=== PATIENT | female | born 1970 | race Hispanic/Latino ===

== ENCOUNTER 2025-04-16 21:41 | Emergency (ER) | payer BC ==
[~2025-04-16] VITALS: Ht 165.1 cm; Wt 58.1 kg
--- NOTE | 2025-04-16 22:16 | ERN ---
ED Note History of Present Illness Stated Complaint: C/O POSSIBLE SPIDER BITE TO RT ANKLE Chief Complaint: Animal Bite Time Seen by MD: 21:43 Time Seen by Midlevel: 21:43 Dictation: The patient is a 55-year-old female with no past medical history who presents to the emergency department with complaints of possible insect bite to her anterior right ankle onset prior to arrival. Patient reports she was working outside in her garden when she imbalance that is something bit her but is unaware of what bit her. Reports he is up-to-date with her tetanus . Allergies: Coded Allergies: No Known Allergies (Unverified Allergy, Unknown, 04/16/25) Past Medical History Past Medical History: No Pertinent History Surgical History: RN Note Reviewed/Agreed w/PFSH: Yes Review of System Dictation Constitutional: Negative for fever,chills, and weight loss Eyes: Negative for injury, pain,redness, and discharge ENT: Negative for injury,pain or swelling Cardiovascular: Negative for chest pain, palpitations, and edema Respiratory: Negative for shortness of breath, cough, and wheezing, Abdomen/GI: Negative for abdominal pain, nausea, vomiting, diarrhea, and constipation Back: Negative for injury and pain : Negative for injury, bleeding and discharge MS/Extremity: Negative for injury and deformity Skin: Negative for rash, and discoloration positive for right ankle pain Neuro: Negative for headache, weakness, numbness, tingling, and seizure Psych: Negative for suicide ideation, homicidal ideation, and hallucinations Initial Vital Sign VS Vital Signs Date Time Temp Pulse Resp B/P (MAP) Pulse Ox O2 Delivery O2 Flow Rate FiO2 04/16/25 21:43 98.4 73 20 165/85 97 Room Air 04/16/25 21:48 0 21 Physical Exam Dictation Vital Signs reviewed General Appearance: Alert, oriented x 3, no acute distress, well developed, nourished. Head and Face: non-traumatic. Eyes: PERRL, pink conjunctivas, eyelid no trauma, anterior chamber with arcus s enilis. Ears: Pinnas intact and no signs of trauma or erythema ear canals clear and no discharge TM no erythema Nose: No discharge, no bleeding. Oropharynx: Mouth normal, tongue pink. pharynx clear,no erythema, tonsils no exudates, no abscesses noted, mucous membrane moist Neck: Supple, non-tender, no thyromegaly, no masses, no JVD, no bruits Breast:Deferred Chest:No tenderness, no crepitus, no paradoxical movement, no retractions Lungs:Clear, well-ventilated, symmetric, no rales, no wheezing, no rhonchi, no stridor, good breath sounds bilaterally Heart: Regular rate, regular rhythm, no murmur, no gallops Vascular: no peripheral edema, Abdomen: Soft, positive bowel sounds, nondistended, no guarding, nontender, no rebound, no masses no hepatomegaly, no splenomegaly, no Castro's sign, no hernias. Rectal: Deferred Genital: Deferred Neurological: Normal speech, motor function intact, sensory function intact Musculoskeletal: Neck nontender, full range of motion, back nontender, full range of motion, Extremities: nontender, full range of motion Skin: Color pink, dry, no turgor, no rash, no lacerations, no abrasions, no contusions. Small erythema noted to anterior ankle with mild swelling.no puncture wound noted. Lymphatic: Deferred Results (Laboratory/Radiology) Labs Reviewed?: Yes ED Course ED Course Orders Procedure Category Date Status Time Diphenhydramine Hcl PHA 04/16/25 Complete (Benadryl Cap) 22:00 Famotidine 20mg Tab PHA 04/16/25 Complete (Pepcid 20mg Tab) 22:00 Acetaminophen 325 Tab PHA 04/16/25 Complete (Tylenol 325mg Tab 22:00 Current Medications Medications (Trade) Dose Ordered Sig/Maria Del Carmen Route PRN Reason Start Time Stop Time Status Last Admin Dose Admin Acetaminophen (TYLenol 325MG TAB) 650 mg ONCE ONCE PO 04/16/25 22:00 04/16/25 22:01 DC 04/16/25 22:17 Diphenhydramine HCl (BENAdryl CAP) 25 mg ONCE ONCE PO 04/16/25 22:00 04/16/25 22:01 DC 04/16/25 22:17 Famotidine (Pepcid 20mg Tab) 20 mg ONCE ONCE PO 04/16/25 22:00 04/16/25 22:01 DC 04/16/25 22:17 Vital Signs Date Time Temp Pulse Resp B/P (MAP) Pulse Ox O2 Delivery O2 Flow Rate FiO2 04/16/25 21:48 98.4 73 20 165/85 97 Room Air* 0 21 04/16/25 21:43 98.4 73 20 165/85 97 Room Air Medical Decision Making MDM The patient is a 55-year-old female with no past medical history who presents to the emergency department with complaints of possible insect bite to her anterior right ankle onset prior to arrival. Patient reports she was working outside in her garden when she imbalance that is something bit her but is unaware of what bit her. Reports he is up-to-date with her tetanus. There is mild erythema to anterior ankle, scan swelling. Unknown insect bite. Patient instructed to continue to monitor site for any increase redness or signs of infection. On physical exam. Patient is in no acute distress, non toxic appearance. Stable vital signs. Differential diagnosis: Insect bite, allergic reaction, cellulitis Need for hospitalization: Patient does not meet criteria for hospitalization. There are no social concerns with this patient. DX & DISP Disposition: Discharge Departure Impression: Primary Impression: Insect bite Condition: Stable Additional Instructions: Please continue to monitor for any increase redness, fevers or worsening symptoms. If there is increase redness please follow up with your PCP for evaluation of antibiotics. If anything worsens please return to ER. FOLLOW-UP WITH PRIMARY CARE PROVIDER IN 1 TO 2 DAYS. TAKE MEDICATIONS DIRECTED HERE IN THE EMERGENCY ROOM. OKAY TO CONTINUE HOME MEDICATIONS UNLESS OTHERWISE DISCUSSED DURING YOUR VISIT IN THE EMERGENCY ROOM TODAY. RETURN TO YOUR NEAREST EMERGENCY ROOM IF SYMPTOMS WORSEN OR IF THERE IS NO IMPROVEMENT. CALL 911 IF YOU NEED IMMEDIATE ASSISTANCE. TAKE TYLENOL [id number] NEEDED AND IF NO CONTRAINDICATIONS ARE PRESENT. INCREASE ORAL HYDRATION. A WOUND CULTURE OR URINE CULTURE WAS ORDERED HERE IN THE EMERGENCY ROOM DEPARTMENT PLEASE FOLLOW-UP WITH PRIMARY CARE PROVIDER AND ADVISE THEM TO GET REPEAT PORTS FROM OUR FACILITY. IF YOU HAD ANY IKE WRAP/SPLINTS THAT WERE APPLIED HERE, PLEASE DO NOT REMOVE THEM UNTIL YOU SEE YOUR PRIMARY CARE OR SPECIALTY. Referrals: SELF,REFERRAL (PCP) Time of Disposition: 22:32 I have reviewed the case, and I agree with, Diagnosis and Plan CATINA ARIAS Apr 16, 2025 22:16
[2025-04-16] MEDS: FAMOTIDINE 20MG TAB PO ONE (22:17)
--- NOTE | 2025-04-16 22:34 | NUR ---
WOUND CLEANED PER CITLALLI [employer]INIQUE
[2025-04-16 22:35] VITALS: BP 148/78; PULSE 70; RESP 20; TEMP 98.4; O2SAT 97
== END 2025-04-16 22:36 | disposition home or self-care (01) ==
LOC: EDH 21:41
DX: S90.561A Insect bite (nonvenomous), right ankle, initial encounter (principal); Z98.890 Other specified postprocedural states; W57.XXXA Bitten or stung by nonvenomous insect and other nonvenomous arthropods, initial encounter; Y93.89 Activity, other specified; Y92.89 Other specified places as the place of occurrence of the external cause; Y99.8 Other external cause status
CPT/HCPCS: 99283; Q0163